=== PATIENT | female | born 1985 | race Caucasian/White ===

== ENCOUNTER 2021-02-10 15:33 | Outpatient (CLI) | payer OTHER | END 2021-02-10 15:34 | disposition home or self-care (01) | LOC: CSHMRI 15:33 | PROVIDERS: ATTEND Psychiatry & Neurology Neurology | DX: M50.20 Other cervical disc displacement, unspecified cervical region (principal); M53.82 Other specified dorsopathies, cervical region | CPT/HCPCS: 72141 ==

== ENCOUNTER 2021-10-27 12:09 | Outpatient (CLI) | payer BC ==
[2021-10-27 14:56] LABS: BHCG - Serum Negative (NEGATIVE); Pregs Control Background? CLEAR/WHITE (CLR/WHITE); Pregs Control Bar Appear? YES (CONTROL BAR)
[2021-10-27 14:57] LABS: Hemoglobin 12.8 g/dL (12.0-15.5); Mean Corpuscular Hemoglobin 28.1 pg (27.0-33.0); Mean Corpuscular Volume 87.7 fl (81.6-98.3); Mean Platelet Volume 10.4 fl (7.4-10.4); Platelet Count 239 10x3/uL (150-450); RBC Distribution Width 12.5 % (11.5-14.5); Red Blood Cell (RBC) Count 4.56 10x6/uL (3.90-5.03); White Blood Cell (WBC) Count 8.5 10x3/uL (3.5-10.5)
[2021-10-28 09:12] LABS: SARS-CoV-2 PCR by NAA Not Detected (NotDetected)
== END 2021-10-27 12:10 | disposition home or self-care (01) ==
LOC: CSHLAB 12:09
PROVIDERS: ATTEND Obstetrics & Gynecology
DX: Z01.812 Encounter for preprocedural laboratory examination (principal); Z20.822 Contact with and (suspected) exposure to COVID-19; N92.0 Excessive and frequent menstruation with regular cycle
CPT/HCPCS: 84703; 85027; 86850; 86900; 86901; U0003; U0005

== ENCOUNTER 2021-11-01 11:40 | Day surgery (SDC) | payer BC ==
[2021-10-20 11:24] VITALS: BMI 18.8
[2021-10-27 14:56] LABS: BHCG - Serum Negative (NEGATIVE); Pregs Control Background? CLEAR/WHITE (CLR/WHITE); Pregs Control Bar Appear? YES (CONTROL BAR)
[2021-10-27 14:57] LABS: Hemoglobin 12.8 g/dL (12.0-15.5); Mean Corpuscular Hemoglobin 28.1 pg (27.0-33.0); Mean Corpuscular Volume 87.7 fl (81.6-98.3); Mean Platelet Volume 10.4 fl (7.4-10.4); Platelet Count 239 10x3/uL (150-450); RBC Distribution Width 12.5 % (11.5-14.5); Red Blood Cell (RBC) Count 4.56 10x6/uL (3.90-5.03); White Blood Cell (WBC) Count 8.5 10x3/uL (3.5-10.5)
[2021-10-28 09:12] LABS: SARS-CoV-2 PCR by NAA Not Detected (NotDetected)
[2021-11-01] MEDS ORDERED: Lidocaine 1% MPF 2 ML VIAL ONE (11:47)
[2021-11-01] MEDS ORDERED: CeleCOXIB 100 MG CAP ONE (11:47)
[2021-11-01] MEDS ORDERED: Midazolam HCl 2 mg/2 ml Vial ONE ×2 (12:49→12:52)
[2021-11-01] MEDS ORDERED: PROPOFOL 20 ML ONE (12:52)
[2021-11-01] MEDS ORDERED: Fentanyl 100 MCG/2 ML VIAL ONE (12:52)
[2021-11-01] MEDS ORDERED: Dexamethasone 20 MG/5 ML VIAL ONE (12:54)
[2021-11-01] MEDS ORDERED: Ondansetron PF 4 MG/2 ML Vial ONE (12:54)
[2021-11-01] MEDS ORDERED: Metoclopramide HCl 10 MG/2 ML VIAL ONE (12:54)
[2021-11-01] MEDS ORDERED: Ketorolac Tromethamine 30 MG/ML VIAL ONE (12:54)
[2021-11-01] MEDS ORDERED: Lidocaine 2% PF 5 ML VIAL ONE (12:54)
[2021-11-01] MEDS ORDERED: ceFAZolin 2 GM/Dextrose 50 ML IVPB ONE (13:05)
[2021-11-01] MEDS ORDERED: ePHEDrine Sulfate 50 MG/10 ML VIAL ONE (13:23)
== END 2021-11-01 15:55 | disposition home or self-care (01) ==
LOC: CSHSDC 11:40
PROVIDERS: ATTEND Obstetrics & Gynecology
PROC: 0UDB7ZX Extraction of Endometrium, Via Natural or Artificial Opening, Diagnostic (ICD-10-PCS; principal; 2021-11-01)
PROC: 0U5B8ZZ Destruction of Endometrium, Via Natural or Artificial Opening Endoscopic (ICD-10-PCS; principal; 2021-11-01)
DX: N92.0 Excessive and frequent menstruation with regular cycle (principal); G43.909 Migraine, unspecified, not intractable, without status migrainosus; Z79.3 Long term (current) use of hormonal contraceptives; Z79.899 Other long term (current) drug therapy; Z91.018 Allergy to other foods; Z91.030 Bee allergy status; Z91.040 Latex allergy status; Z90.721 Acquired absence of ovaries, unilateral; Z98.51 Tubal ligation status; Z20.822 Contact with and (suspected) exposure to COVID-19
CPT/HCPCS: 84703; 85027; 86850; 86900; 86901; 88305; J0690; J1100; J1885; J2001; J2250; J2405; J2704; J2765; J3010; U0003; U0005